=== PATIENT | male | born 1995 | race Caucasian/White ===

== ENCOUNTER 2016-05-24 10:46 | Inpatient (IN) | payer MEDICAID, OTHER ==
[~2016-05-24] VITALS: Ht 167.6 cm; Wt 90.3 kg
[2016-05-24] MEDS ORDERED: LORazepam 2MG/ML-1ML VIAL IV ONE (11:00)
[2016-05-24 11:25] LABS: Basophils # (auto) 0 uL; Basophils % (auto) 0.4 % (0.0-2.0); Eosinophils # (auto) 0 uL; Eosinophils % (auto) 0.7 % (0.0-7.0); Hematocrit 45.5 % (41.0-53.0); Hemoglobin 15.5 g/dL (13.5-17.5); Lymphocytes # (auto) 1.2 uL; Lymphocytes % (auto) 21.5 % (10.0-50.0); Mean Corpuscular Hemoglobin 30.6 pg (28.0-32.0); Mean Corpuscular Hgb Conc. 34.1 g/dL (32.0-36.0); Mean Corpuscular Volume 89.7 fL (80.0-100.0); Mean Platelet Volume 8.8 fL (7.4-10.4); Monocytes # (auto) 0.4 uL; Monocytes % (auto) 7.3 % (0.0-12.0); Neutrophils % (auto) 70.1 % (37.0-80.0); Platelet Count (auto) 301 10^3/uL (140-450); Red Cell Distribution Width 12.8 % (11.6-16.0); White Blood Cell 5.8 10^3/uL (4.4-10.8)
[2016-05-24 11:47] LABS: Albumin 1.9 g/dL (3.4-5.0); Anion Gap 11 (5-15); BUN/Creatinine Ratio 31.8; Blood Urea Nitrogen 7 mg/dL (7-18); Carbon Dioxide 15 mmol/L (21-32); Chloride 125 mmol/L (98-107); GFR African American 710 mL/min; GFR Non-African American 587 mL/min; Glucose 56 mg/dL (74-106); Magnesium 1.2 mg/dL (1.6-2.6); Sodium 151 mmol/L (136-145)
[2016-05-24 11:53] LABS: Alkaline Phosphatase 31 U/L (45-117); Aspartate Aminotransferase 15 U/L (15-37); Bilirubin, Total 0.3 mg/dL (0.2-1.0)
[2016-05-24 13:15] LABS: Potassium 1.9 mmol/L (3.5-5.1)
[2016-05-24] MEDS ORDERED: POTASSIUM CHL 20 Meq TABLET PO ONE (13:30)
[2016-05-24] MEDS ORDERED: POTASSIUM CHL 20MEQ/100ML 100 ML IV ONE (13:30)
[2016-05-24 14:20] LABS: Calcium 2.5 mg/dL (8.5-10.1)
[2016-05-24] MEDS ORDERED: ZOLPIDEM TARTRATE 5 MG TAB PO PRN (15:00)
[2016-05-24] MEDS ORDERED: MORPHINE SULF INJ 2 MG/ML SYRINGE 1ML IV PRN ×2 (15:00)
[2016-05-24] MEDS ORDERED: CALCIUM GLUC 4.65 MEQ/10ML 4.65 MEQ in SODIUM CHL 0.9% 50 ML IV ONE (15:00)
[2016-05-24] MEDS ORDERED: NITROGLYCERIN 0.4 MG SL TAB SL PRN ×2 (15:00)
[2016-05-24] MEDS ORDERED: ONDANSETRON HCL 4 MG/2 ML VIAL IV PRN (15:00)
[2016-05-24] MEDS ORDERED: POTASSIUM CHL 10 Meq TABLET PO ONE (15:00)
[2016-05-24] MEDS ORDERED: LORazepam 0.5 MG TAB PO PRN (15:00)
[2016-05-24] MEDS ORDERED: ACETAMINOPHEN 325 MG TAB PO PRN (15:00)
[2016-05-24] MEDS ORDERED: MAGNESIUM SULFATE 1GM/100ML 100 ML IV ONE (15:00)
[2016-05-24] MEDS ORDERED: ALUM & MAG HYDROX-SIMETH LIQ(MAALOX) 30 ML PO PRN (15:00)
[2016-05-24] MEDS: ATENOLOL 25 MG TAB PO SCH (16:23)
[2016-05-24] MEDS: DOCUSATE SOD 100 MG CAP PO SCH (16:23)
[2016-05-24] MEDS: ENALAPRIL MALEATE 2.5 MG TAB PO SCH ×2 (16:24→22:00)
[2016-05-24 18:51] LABS: Albumin 4.1 g/dL (3.4-5.0); Calcium 8.7 mg/dL (8.5-10.1); Potassium 3.7 mmol/L (3.5-5.1)
[2016-05-24 18:55] LABS: Bilirubin, Total 0.6 mg/dL (0.2-1.0); Total Protein 8.3 g/dL (6.4-8.2)
[2016-05-24 20:57] VITALS: BP 135/76
[2016-05-24 22:00] VITALS: BP 112/74
[2016-05-24] MEDS ORDERED: ATORVASTATIN 20 MG TAB PO SCH (22:00)
[2016-05-24] MEDS: SODIUM CHLOR 0.9% PF (SALINE LOCK) 10ML VIAL IV SCH (22:06)
[2016-05-25 05:30] VITALS: BP 110/70
[2016-05-25] MEDS: SODIUM CHLOR 0.9% PF (SALINE LOCK) 10ML VIAL IV SCH ×2 (05:54→14:18)
[2016-05-25 06:16] LABS: Basophils # (auto) 0 uL; Basophils % (auto) 0.5 % (0.0-2.0); Eosinophils # (auto) 0.1 uL; Hematocrit 46.3 % (41.0-53.0); Hemoglobin 15.6 g/dL (13.5-17.5); Lymphocytes # (auto) 2.2 uL; Mean Corpuscular Hemoglobin 30.6 pg (28.0-32.0); Mean Corpuscular Hgb Conc. 33.8 g/dL (32.0-36.0); Mean Corpuscular Volume 90.6 fL (80.0-100.0); Monocytes # (auto) 0.5 uL; Monocytes % (auto) 7.4 % (0.0-12.0); Neutrophils # (auto) 3.6 uL; Neutrophils % (auto) 56.1 % (37.0-80.0); Platelet Count (auto) 319 10^3/uL (140-450); Red Cell Distribution Width 13.3 % (11.6-16.0); White Blood Cell 6.5 10^3/uL (4.4-10.8)
[2016-05-25 06:19] LABS: Albumin 3.8 g/dL (3.4-5.0); BUN/Creatinine Ratio 13.1; Bilirubin, Total 1.1 mg/dL (0.2-1.0); Calcium 8.7 mg/dL (8.5-10.1); Magnesium 2.5 mg/dL (1.6-2.6); Potassium 3.8 mmol/L (3.5-5.1); Total Protein 7.5 g/dL (6.4-8.2)
[2016-05-25 08:10] VITALS: BP 110/64
[2016-05-25] MEDS: ENALAPRIL MALEATE 2.5 MG TAB PO SCH (09:49)
[2016-05-25] MEDS: ATENOLOL 25 MG TAB PO SCH (09:50)
[2016-05-25] MEDS: DOCUSATE SOD 100 MG CAP PO SCH (09:50)
[2016-05-25 12:41] VITALS: BP 130/89
[2016-05-25 16:00] VITALS: BP 109/61
[2016-05-28 10:07] LABS: Vitamin D-2 25-Hydroxy 2.8 ng/mL (.)
== END 2016-05-25 16:52 | disposition home or self-care (01) | DRG 203 ==
LOC: ER 10:46 → TELE-WESTW 10:47 → ER 19:44
PROVIDERS: ADMIT Internal Medicine; ATTEND Internal Medicine
DX: M94.0 Chondrocostal junction syndrome [Tietze] (principal); E87.0 Hyperosmolality and hypernatremia; E83.42 Hypomagnesemia; E83.51 Hypocalcemia; E87.6 Hypokalemia; E86.0 Dehydration; F17.210 Nicotine dependence, cigarettes, uncomplicated; F41.9 Anxiety disorder, unspecified; F15.90 Other stimulant use, unspecified, uncomplicated; F12.90 Cannabis use, unspecified, uncomplicated; Z82.49 Family history of ischemic heart disease and other diseases of the circulatory system; Z83.3 Family history of diabetes mellitus
CPT/HCPCS: 36415; 71010; 80053; 80061; 82306; 83735; 83970; 84100; 84132; 84443; 84484; 85025; 93005; 93306; 96361; 96365; 96368; 96375; 99291; G0434; J3480

== ENCOUNTER 2016-07-31 20:41 | Emergency (ER) | payer MEDICAID ==
[~2016-07-31] VITALS: Ht 177.8 cm; Wt 90.7 kg
[2016-07-31 21:12] LABS: Basophils # (auto) 0 uL; Basophils % (auto) 0.2 % (0.0-2.0); Eosinophils # (auto) 0 uL; Hematocrit 48.4 % (41.0-53.0); Hemoglobin 16.7 g/dL (13.5-17.5); Lymphocytes # (auto) 1.1 uL; Mean Corpuscular Hemoglobin 31.4 pg (28.0-32.0); Mean Corpuscular Hgb Conc. 34.5 g/dL (32.0-36.0); Mean Corpuscular Volume 91.2 fL (80.0-100.0); Monocytes # (auto) 1.1 uL; Monocytes % (auto) 7.9 % (0.0-12.0); Neutrophils % (auto) 83.9 % (37.0-80.0); Platelet Count (auto) 328 10^3/uL (140-450); Red Cell Distribution Width 12.9 % (11.6-16.0); SUSPECT VIEW TRANSMISSION; White Blood Cell 14.3 10^3/uL (4.4-10.8)
[2016-07-31] MEDS ORDERED: SODIUM CHLORIDE 0.9% 1,000 ML IV ONE ×3 (21:30→23:15)
[2016-07-31 21:33] LABS: Albumin 4.3 g/dL (3.4-5.0); Anion Gap 18 (5-15); Aspartate Aminotransferase 35 U/L (15-37); Blood Urea Nitrogen 19 mg/dL (7-18); Calcium 9.3 mg/dL (8.5-10.1); Carbon Dioxide 17 mmol/L (21-32); Chloride 106 mmol/L (98-107); GFR African American 66 mL/min; GFR Non-African American 55 mL/min; Glucose 92 mg/dL (74-106); Magnesium 2.1 mg/dL (1.6-2.6); Potassium 3.3 mmol/L (3.5-5.1); Sodium 141 mmol/L (136-145)
[2016-07-31] MEDS ORDERED: LORazepam 2MG/ML-1ML VIAL ONE (21:33)
[2016-07-31 21:38] LABS: Alkaline Phosphatase 78 U/L (45-117); Total Protein 8.6 g/dL (6.4-8.2)
[2016-07-31] MEDS ORDERED: LORazepam 2MG/ML-1ML VIAL IV ONE ×3 (21:45→23:30)
[2016-07-31 21:53] LABS: Salicylate < 1.7 mg/dL (2.8-20.0)
[2016-07-31 21:54] LABS: Acetaminophen < 2.0 ug/mL (10-30)
[2016-07-31 22:47] LABS: Urine Bilirubin Negative (Negative); Urine Blood Negative /uL (Negative); Urine Color Yellow (Yellow); Urine Glucose Normal (Normal); Urine Hyaline Cast MANY /lpf (0 - 2); Urine Ketone 3+ (Negative); Urine Mucus MODERATE (None Seen); Urine Nitrite Negative (Negative); Urine RBC 1 /hpf (0 - 3); Urine Sperm PRESENT /hpf (None Seen); Urine Urobilinogen Normal (Negative)
[2016-07-31] MEDS ORDERED: diphenhdrAMINE HCL 50 MG/1 ML VL IV ONE (23:30)
[2016-07-31] MEDS ORDERED: HALOPERIDOL LACTATE 5 MG/ML INJ VIAL IM ONE (23:30)
[2016-08-01 06:10] VITALS: BP 117/83
== END 2016-08-01 06:14 | disposition home or self-care (01) ==
LOC: EDBD 20:41 → ER 20:43
DX: F41.9 Anxiety disorder, unspecified (principal); F12.10 Cannabis abuse, uncomplicated; F15.10 Other stimulant abuse, uncomplicated; F17.210 Nicotine dependence, cigarettes, uncomplicated; F19.10 Other psychoactive substance abuse, uncomplicated
CPT/HCPCS: 36415; 51702; 71010; 80053; 80307; 80320; 80329; 81001; 83735; 84484; 85025; 93005; 96361; 96372; 96374; 96375; 96376; 99285; J1200; J1630; J2060; J7030